=== PATIENT | male | born 1955 | race African-American/Black ===

== ENCOUNTER 2021-02-27 23:30 | Emergency (ER) | payer MEDICARE, OTHER ==
[~2021-02-27] VITALS: Ht 170.2 cm; Wt 50.0 kg
[2021-02-28 03:50] VITALS: BP 148/78
== END 2021-02-28 04:13 | disposition home or self-care (01) ==
LOC: ER 23:30
DX: Z46.6 Encounter for fitting and adjustment of urinary device (principal); R33.8 Other retention of urine; R10.2 Pelvic and perineal pain; N32.89 Other specified disorders of bladder; I10 Essential (primary) hypertension; Z85.46 Personal history of malignant neoplasm of prostate
CPT/HCPCS: 99283; A4315